=== PATIENT | male | born 1995 | race Caucasian/White ===

== ENCOUNTER 2020-02-10 14:24 | Emergency (ER) | payer OTHER, SELFPAY ==
--- NOTE | 2020-02-10 15:29 | EDPHYS ---
Physician Documentation [facility] Name: Lavon Hilton Jr Age: 24 yrs Sex: Male : 1995 Arrival Date: 02/10/2020 Time: 14:32 Bed 3 Private MD: ED Physician Prabhakar Chan HPI: 02/09 15:25 This 24 yrs old Male presents to ER via Ambulatory with complaints of jr8 Laceration To Arm. 15:25 The patient has a laceration related to: working, occurred outdoors. The laceration(s) jr8 is(are) located on the left arm. Onset: The symptoms/episode began/occurred acutely, today. Associated signs and symptoms: The patient has no apparent associated signs or symptoms. The patient has not experienced similar symptoms in the past. The patient has not recently seen a physician. Stated that he was cutting trees and the blade kicked back causing laceration to dorsal left arm. Historical: - Allergies: 14:35 No Known Allergies; jl7 - Home Meds: 14:35 None [Active]; jl7 - PMHx: 14:35 None; jl7 - PSHx: 14:35 None; jl7 - Immunization history:: Adult Immunizations up to date, Last tetanus immunization: < 5 years ago. - Social history:: Smoking status: Patient reports the use of cigarette tobacco products, smokes one-half pack cigarettes per day. ROS: 15:25 Eyes: Negative for injury, pain, redness, and discharge, ENT: Negative for injury, jr8 pain, and discharge, Neck: Negative for injury, pain, and swelling, Cardiovascular: Negative for chest pain, palpitations, and edema, Respiratory: Negative for shortness of breath, cough, wheezing, and pleuritic chest pain, Abdomen/GI: Negative for abdominal pain, nausea, vomiting, diarrhea, and constipation, Back: Negative for injury and pain, MS/Extremity: Negative for injury and deformity, Neuro: Negative for headache, weakness, numbness, tingling, and seizure. 15:25 Skin: Positive for laceration(s), of the left arm. Exam: 15:25 Constitutional: This is a well developed, well nourished patient who is awake, alert, jr8 and in no acute distress. Cardiovascular: Regular rate and rhythm with a normal S1 and S2. No gallops, murmurs, or rubs. Normal PMI, no JVD. No pulse deficits. Respiratory: Lungs have equal breath sounds bilaterally, clear to auscultation and percussion. No rales, rhonchi or wheezes noted. No increased work of breathing, no retractions or nasal flaring. MS/ Extremity: Pulses equal, no cyanosis. Neurovascular intact. Full, normal range of motion. Neuro: Awake and alert, GCS 15, oriented to person, place, time, and situation. Cranial nerves II-XII grossly intact. Motor strength 5/5 in all extremities. Sensory grossly intact. Cerebellar exam normal. Normal gait. 15:25 Skin: Patient has 6 cm irregular laceration noted to dorsal forearm down to fascia but not piercing through it. Bleeding controlled . Vital Signs: 14:33 BP 113 / 67; Pulse 70; Resp 17; Temp 97.8; Pulse Ox 98% ; Weight 58.51 kg; Height 6 ft. jl7 (182.88 cm); Pain 2/10; 14:33 Body Mass Index 17.50 (58.51 kg, 182.88 cm) jl7 Laceration: 15:25 Wound Repair of 6cm ( 2.4in ) subcutaneous laceration to dorsal aspect of left forearm. jr8 Irregularly shaped.. Distal neuro/vascular/tendon intact. Anesthesia: Local anesthetic administered with 6 mls of 1% lidocaine. Wound prep: Extensive cleansing with betadine, Wound irrigation with saline, Wound margin revised moderately, Wound explored extensively. Skin closed with 7 4-0 Prolene using interrupted sutures and sterile technique. Patient tolerated well. MDM: 14:46 Patient medically screened. [facility] 15:25 Data reviewed: vital signs, nurses notes, and as a result, I will discharge patient. jr8 Data interpreted: Pulse oximetry: on room air is 98 %. Interpretation: normal. Counseling: I had a detailed discussion with the patient and/or guardian regarding: the historical points, exam findings, and any diagnostic results supporting the discharge/admit diagnosis, the need for outpatient follow up, a family practitioner, to return to the emergency department if symptoms worsen or persist or if there are any questions or concerns that arise at home. Administered Medications: No medications were administered Disposition: 02/10 05:35 Co-signature as Attending Physician, Prabhakar Chan MD I agree with the assessment and renny plan of care. Disposition: 02/10/20 15:28 Discharged to Home. Impression: Laceration without foreign body of left forearm. - Condition is Stable. - Discharge Instructions: Laceration Care, Adult. - Medication Reconciliation Form, Thank You Letter, Antibiotic Education, Prescription Opioid Use form. - Follow up: Emergency Department; When: 7 - 10 days; Reason: Wound Recheck, Recheck today's complaints, Continuance of care, Staple/Suture removal, Re-evaluation by your physician. - Problem is new. - Symptoms have improved. Signatures: Prabhakar Chan MD MD cha Roszak, Josh, PA PA jr8 Asuncion Singletary RN RN jl7 Corrections: (The following items were deleted from the chart) 02/09 15:46 15:28 02/10/2020 15:28 Discharged to Home. Impression: Laceration without foreign body jl7 of left forearm. Condition is Stable. Forms are Medication Reconciliation Form, Thank You Letter, Antibiotic Education, Prescription Opioid Use. Follow up: Emergency Department; When: 7 - 10 days; Reason: Wound Recheck, Recheck today's complaints, Continuance of care, Staple/Suture removal, Re-evaluation by your physician. Problem is new. Symptoms have improved. jr8
--- NOTE | 2020-02-10 15:29 | ER ---
Nurse's Notes [facility] Name: Lavon Hilton Jr Age: 24 yrs Sex: Male : 1995 Arrival Date: 02/10/2020 Time: 14:32 Bed 3 Private MD: Diagnosis: Laceration without foreign body of left forearm Presentation: 02/09 14:33 Chief complaint: Patient states: Cutting tree limbs and the saw slipped cutting left jl7 forearm 30 min [employer]. Coronavirus screen: Proceed with normal triage. Patient denies a cough. Patient denies shortness of breath or difficulty breathing. Patient denies measured and/or subjective temperature greater than 100.4F prior to today's visit. Patient denies travel on a cruise ship or to a country the [facility] currently lists as an affected area. Patient denies contact with known and/or suspected case of COVID-19. Ebola Screen: No symptoms or risks identified at this time. Complicating Factors: There are no complicating factors for this patient. Initial Sepsis Screen: Does the patient meet any 2 criteria? No. Patient's initial sepsis screen is negative. Does the patient have a suspected source of infection? No. Patient's initial sepsis screen is negative. Risk Assessment: Do you want to hurt yourself or someone else? Patient reports no desire to harm self or others. Onset of symptoms was February 10, 2020. Care prior to arrival: None. 14:33 Method Of Arrival: Ambulatory 7 14:33 Acuity: YOHANA 4 jl7 Triage Assessment: 14:35 General: Appears in no apparent distress. uncomfortable, Behavior is calm, cooperative, jl7 appropriate for age, anxious. Pain: Complains of pain in dorsal aspect of left forearm Pain does not radiate. Pain currently is 2 out of 10 on a pain scale. Pain began 30 min ago. Neuro: Level of Consciousness is awake, alert, obeys commands, Oriented to person, place, time, situation. Cardiovascular: Patient's skin is warm and dry. Respiratory: Airway is patent Respiratory effort is even, unlabored, Respiratory pattern is regular, symmetrical. Derm: Skin is pink, warm \T\ dry. Injury Description: Laceration sustained to dorsal aspect of left forearm is contaminated, 2.6 to 7.5 cm long, was sustained 30-60 minutes ago. is bleeding a small amount. Historical: - Allergies: 14:35 No Known Allergies; jl7 - Home Meds: 14:35 None [Active]; jl7 - PMHx: 14:35 None; jl7 - PSHx: 14:35 None; jl7 - Immunization history:: Adult Immunizations up to date, Last tetanus immunization: < 5 years ago. - Social history:: Smoking status: Patient reports the use of cigarette tobacco products, smokes one-half pack cigarettes per day. Screenin:36 Abuse screen: Denies threats or abuse. Denies injuries from another. Nutritional jl7 screening: No deficits noted. Tuberculosis screening: No symptoms or risk factors identified. Fall Risk None identified. Assessment: 14:36 General: See triage assessment. jl7 Vital Signs: 14:33 BP 113 / 67; Pulse 70; Resp 17; Temp 97.8; Pulse Ox 98% ; Weight 58.51 kg; Height 6 ft. jl7 (182.88 cm); Pain 2/10; 14:33 Body Mass Index 17.50 (58.51 kg, 182.88 cm) jl7 ED Course: 14:32 Patient arrived in ED. jl7 14:34 Triage completed. jl7 14:35 Arm band placed on right wrist. jl7 14:36 Patient has correct armband on for positive identification. Bed in low position. Call jl7 light in reach. Side rails up X 1. Pulse ox on. NIBP on. 14:41 Asuncion Singletary, SEAN is Primary Nurse. jl7 14:41 Sim Ryan PA is PHCP. jr8 14:41 Prabhakar Chan MD is Attending Physician. jr8 15:45 Assist provider with laceration repair on dorsal aspect of left forearm that was jl7 between 2.6 to 7.5 cm using sutures. Set up tray. Performed by Sim FINNEGAN Dressed with 4X4s, Neosporin, Patient tolerated well. Patient did not have IV access during this emergency room visit. Administered Medications: No medications were administered Outcome: 15:28 Discharge ordered by . jr8 15:45 Discharged to home ambulatory. jl7 15:45 Condition: stable 15:45 Discharge instructions given to patient, Instructed on discharge instructions, follow up and referral plans. Demonstrated understanding of instructions, follow-up care. 15:46 Patient left the ED. jl7 Signatures: Sim Ryan PA PA jr8 Asuncion Singletary, RN RN jl7
[2020-02-10 15:51] VITALS: BP 113/67; TEMP 97.8; O2SAT 98
[2020-02-10] MEDS ORDERED: LIDOCAINE 1% MPF 5 ML VIAL ONE (18:53)
== END 2020-02-10 15:46 | disposition home or self-care (01) ==
LOC: ER 14:24
PROC: 0JQH0ZZ Repair Left Lower Arm Subcutaneous Tissue and Fascia, Open Approach (ICD-10-PCS; principal; 2020-02-10)
DX: S51.812A Laceration without foreign body of left forearm, initial encounter (principal); W27.8XXA Contact with other nonpowered hand tool, initial encounter; Y93.H2 Activity, gardening and landscaping; Y92.9 Unspecified place or not applicable; F17.210 Nicotine dependence, cigarettes, uncomplicated
CPT/HCPCS: 99283

== ENCOUNTER 2022-11-30 18:10 | Emergency (ER) | payer SELFPAY ==
[2022-11-30 19:56] LABS: Urine Blood Negative (Negative); Urine Glucose Negative (Negative); Urine Protein Negative (Negative)
[2022-11-30] MEDS ORDERED: NA CHLORIDE 0.9% 1,000 ML ONE (20:04)
[2022-11-30] MEDS ORDERED: KETOROLAC 30 MG/ML INJ ONE (20:04)
[2022-11-30 20:08] LABS: Absolute Lymphocytes (CBC) 2.5 K/uL (0.7-4.9); Hematocrit 42.3 % (39.6-49.0); MCV 85.2 fL (80-100); RBC Red Blood Cell Count 4.96 M/uL (4.33-5.43)
[2022-11-30 20:09] LABS: Urine Bacteria None Seen /HPF (<20); Urine Mucus Slight /HPF (None Seen); Urine RBC <5 /HPF (None Seen)
[2022-11-30 20:13] LABS: Albumin 4.2 g/dL (3.4-5.0); Bilirubin Total 0.4 mg/dL (0.2-1.0); Potassium 4.3 mmol/L (3.5-5.1); Protein, Total 7.6 g/dL (6.4-8.2)
--- NOTE | 2022-11-30 20:51 | RAD REPORT ---
EXAM DESCRIPTION: US - Scrotum Testicles - 11/30/2022 8:37 pm CLINICAL HISTORY: Swelling COMPARISON: None available TECHNIQUE: Sonographic grayscale and color flow images of the scrotum were obtained. FINDINGS: The right testicle measures 4.6 x 2.7 x 3.0 centimeter. Asymmetric hyperemia throughout mo st of the right testicular parenchyma, with mild heterogeneity. No intratesticular masses or evidence of testicular torsion. The left testicle measures 4.0 x 2.3 x 2.8 centimeter. No intratesticular masses or evidence of testi cular torsion. Asymmetric enlargement of the right epididymal head, with hyperemia. Bilateral mild hydroceles. Septa tion within the left hydrocele, with possible focal calcification. No pathologic fluid collections. IMPRESSION: Asymmetric hyperemia of the right testicle, with asymmetric enlargement and hyperemia of the right epididymal head, findings which raise concern for acute epididymal orchitis. Bilateral small Hydroceles.
--- NOTE | 2022-11-30 21:04 | RAD REPORT ---
EXAM DESCRIPTION: CT - Abdomen Pelvis W Contrast - 11/30/2022 8:44 pm CLINICAL HISTORY: RLQ abdomen pain COMPARISON: Scrotum Testicles dated 11/30/2022 TECHNIQUE: Thin cut axial CT imaging of the abdomen and pelvis was performed following intravenous a dministration of Isovue 300. Multiplanar reformats were generated and reviewed. All CT scans are performed using dose optimization technique as appropriate and may include automated exposure control or mA/KV adjustment according to patient size. FINDINGS: No suspicious findings in the lung bases. Small left basal nodules, up to 5 millimeter in size. The liver, spleen, and pancreas show no suspicious findings. Gallbladder and biliary tree are also wi thout suspicious finding. Symmetric renal function is seen with no hydronephrosis or suspicious renal mass. No dilated bowel loops or bowel wall thickening. No free air, free fluid or inflammatory stranding. N o hernia, mass or bulky lymphadenopathy. The urinary bladder is without significant finding. No suspicious bony findings. IMPRESSION: No acute intra-abdominal process. Nonspecific small left basal pulmonary nodules.
--- NOTE | 2022-11-30 22:34 | EDPHYS ---
Physician Documentation [facility] Name: Lavon Hilton Jr Age: 27 yrs Sex: Male : 1995 Arrival Date: 11/30/2022 Time: 18:11 Bed 14 Private MD: ED Physician Andrew Clayton HPI: 11/30 19:33 This 27 yrs old Male presents to ER via Ambulatory with complaints of Testicular cp Swelling. 19:33 The patient presents with swelling, of the right testicle, tenderness, of the right cp testicle. 19:33 Onset: The symptoms/episode began/occurred 2 day(s) ago. cp 19:33 Associated signs and symptoms: Pertinent positives: abdominal pain, dysuria. Severity cp of symptoms: in the emergency department the symptoms are unchanged, despite home interventions. 19:33 Patient reports recent sexual encounter with new partner. cp Historical: - Allergies: 18:26 No Known Allergies; jl7 - Home Meds: 18:26 None [Active]; jl7 - PMHx: 18:26 None; jl7 - PSHx: 18:26 None; jl7 - Immunization history:: Client reports having NOT received the Covid vaccine. - Social history:: Smoking status: Patient reports the use of cigarette tobacco products, smokes one-half pack cigarettes per day. ROS: 19:40 Constitutional: Negative for body aches, chills, fever, poor PO intake. cp 19:40 Eyes: Negative for injury, pain, redness, and discharge. cp 19:40 ENT: Negative for drainage from ear(s), ear pain, sore throat, difficulty swallowing, difficulty handling secretions. 19:40 Cardiovascular: Negative for chest pain, edema, palpitations. 19:40 Respiratory: Negative for cough, shortness of breath, wheezing. 19:40 Abdomen/GI: Positive for abdominal pain, of the right lower quadrant, Negative for vomiting, diarrhea, constipation. 19:40 Back: Negative for pain at rest, pain with movement. 19:40 : Positive for burning with urination, testicular pain 19:40 All other systems are negative. Exam: 19:45 Constitutional: The patient appears in no acute distress, alert, awake, non-toxic, well cp developed, well nourished, uncomfortable. 19:45 Head/Face: Normocephalic, atraumatic. cp 19:45 Eyes: Periorbital structures: appear normal, Conjunctiva: normal, no exudate, no injection, Sclera: no appreciated abnormality, Lids and lashes: appear normal, bilaterally. 19:45 ENT: External ear(s): are unremarkable, Nose: is normal, Mouth: Lips: moist, Oral mucosa: moist, Posterior pharynx: Airway: no evidence of obstruction, patent. 19:45 Chest/axilla: Inspection: normal. 19:45 Cardiovascular: Rate: normal. 19:45 Respiratory: the patient does not display signs of respiratory distress, Respirations: normal, no use of accessory muscles, no retractions, labored breathing, is not present. 19:45 Abdomen/GI: Inspection: abdomen appears normal, Bowel sounds: active, all quadrants, Palpation: soft, in all quadrants, mild abdominal tenderness, in the right lower quadrant, rebound tenderness, is not appreciated. 19:45 Back: CVA tenderness, is absent. 19:45 : Male external genitalia: swelling: of the right testicle is noted, tenderness, of the right testicle is noted, that is moderate, Sexual behavior: the patient is sexually active. 19:45 Skin: cellulitis, is not appreciated, no rash present. Vital Signs: 18:24 BP 144 / 94; Pulse 62; Resp 17; Temp 98.5; Pulse Ox 98% ; Weight 58.97 kg; Height 5 ft. jl7 11 in. (180.34 cm); Pain 9/10; 20:18 Pulse 55; Resp 16; Pulse Ox 100% on R/A; jb4 21:45 BP 110 / 63; Pulse 49; Resp 16; Pulse Ox 99% on R/A; jb4 18:24 Body Mass Index 18.13 (58.97 kg, 180.34 cm) jl7 MDM: 18:27 Patient medically screened. 20:00 Differential diagnosis: appendicitis, UTI, prostatitis, urethritis. 22:33 Data reviewed: vital signs, nurses notes, lab test result(s), radiologic studies, CT cp scan, ultrasound. 22:33 I considered the following discharge prescriptions or medication management in the emergency department Medications were administered in the Emergency Department. See MAR. Counseling: I had a detailed discussion with the patient and/or guardian regarding: the historical points, exam findings, and any diagnostic results supporting the discharge/admit diagnosis, lab results, radiology results, the need for outpatient follow up, a urologist, to return to the emergency department if symptoms worsen or persist or if there are any questions or concerns that arise at home. Response to treatment: the patient's symptoms have markedly improved after treatment, and as a result, I will discharge patient. 11/30 19:28 Order name: US Scrotum Testicles cp 11/30 19:28 Order name: Urine Microscopic Only cp 11/30 19:28 Order name: Urine Dipstick-Ancillary (obtain specimen); Complete Time: 20:13 cp 11/30 19:28 Order name: CBC with Diff cp 11/30 19:28 Order name: CMP cp 11/30 19:28 Order name: Lipase cp 11/30 19:28 Order name: IV Saline Lock; Complete Time: 20:13 cp 11/30 19:28 Order name: Labs collected and sent; Complete Time: 20:13 cp 11/30 19:28 Order name: CT Abd/Pelvis - IV Contrast Only cp 11/30 19:56 Order name: Urine Dipstick-Ancillary; Complete Time: 22:05 EDMS 11/30 20:09 Order name: Urine Microscopic Only; Complete Time: 22:05 EDMS 11/30 20:10 Order name: CBC with Automated Diff; Complete Time: 22:05 EDMS 11/30 22:05 Interpretation: Normal except: WBC 11.40; MN% 14.2; MNA 1.6. cp 11/30 20:13 Order name: Comprehensive Metabolic Panel; Complete Time: 22:05 EDMS 11/30 20:13 Order name: Lipase; Complete Time: 22:05 EDMS 11/30 20:52 Order name: US; Complete Time: 22:05 EDMS 11/30 21:04 Order name: CT; Complete Time: 22:05 EDMS Administered Medications: 20:13 Drug: NS 0.9% 1000 ml Route: IV; Rate: 1 bolus; Site: right forearm; jb4 20:13 Drug: TORadol - (ketorolac) 15 mg Route: IVP; Site: right forearm; jb4 22:38 Drug: Rocephin (cefTRIAXone) 1 grams Route: IV; Rate: calculated rate; Site: right jb4 forearm; 22:51 Follow up: Response: No adverse reaction jb4 22:38 Drug: Zithromax (azithromycin) 1 grams Route: PO; jb4 22:51 Follow up: Response: No adverse reaction jb4 Disposition Summary: 11/30/22 22:33 Discharge Ordered Location: Home cp Problem: new cp Symptoms: have improved cp Condition: Stable cp Diagnosis - Epididymo-orchitis - Right cp Followup: cp - With: Girma Monge MD - When: 1 week - Reason: Recheck today's complaints Discharge Instructions: - Discharge Summary Sheet cp - Epididymitis cp - Orchitis cp - Testicular Self-Exam cp Forms: - Medication Reconciliation Form cp - Thank You Letter cp - Antibiotic Education cp - Prescription Opioid Use cp - Work release form jb4 Prescriptions: - Diclofenac Sodium 75 mg Oral Tablet Sustained Release - take 1 tablet by ORAL route 2 times per day; 30 tablet; Refills: 0, Product cp Selection Permitted - Tramadol 50 mg Oral Tablet - take 1 tablet by ORAL route every 8 hours as needed; 12 tablet; Refills: 0, cp Product Selection Permitted - Doxycycline Monohydrate 100 mg Oral Tablet - take 1 tablet by ORAL route every 12 hours for 14 days; 28 tablet; Refills: 0, cp Product Selection Permitted Signatures: Dispatcher [employer] EDPrabhakar Nathan PA PA cp Bryson, James, RN RN jb4 Asuncion Singletary RN RN jl7
--- NOTE | 2022-11-30 22:34 | ER ---
Nurse's Notes [facility] Name: Lavon Hilton Jr Age: 27 yrs Sex: Male : 1995 Arrival Date: 11/30/2022 Time: 18:11 Bed 14 Private MD: Diagnosis: [id number] Presentation: 11/30 18:24 Chief complaint: Patient states: Right testicular swelling x 2 days with pain and jl7 burning with urination. Coronavirus screen: At this time, the client does not indicate any symptoms associated with coronavirus-19. Ebola Screen: No symptoms or risks identified at this time. Initial Sepsis Screen: Does the patient meet any 2 criteria? No. Patient's initial sepsis screen is negative. Does the patient have a suspected source of infection? No. Patient's initial sepsis screen is negative. Risk Assessment: Do you want to hurt yourself or someone else? Patient reports no desire to harm self or others. Onset of symptoms was November 28, 2022. 18:24 Method Of Arrival: Ambulatory jl7 18:24 Acuity: YOHANA 3 jl7 Triage Assessment: 18:26 General: Appears in no apparent distress. uncomfortable, Behavior is calm, cooperative, jl7 appropriate for age. Pain: Complains of pain in pelvis Pain currently is 9 out of 10 on a pain scale. Historical: - Allergies: 18:26 No Known Allergies; jl7 - Home Meds: 18:26 None [Active]; jl7 - PMHx: 18:26 None; jl7 - PSHx: 18:26 None; jl7 - Immunization history:: Client reports having NOT received the Covid vaccine. - Social history:: Smoking status: Patient reports the use of cigarette tobacco products, smokes one-half pack cigarettes per day. Screenin:[address] [facility] ED Fall Risk Assessment (Adult) History of falling in the last 3 months, jb4 including since admission No falls in past 3 months (0 pts) Confusion or Disorientation No (0 pts) Score/Fall Risk Level 0 - 2 = Low Risk Oriented to surroundings, Maintained a safe environment. Abuse screen: Denies threats or abuse. Nutritional screening: No deficits noted. Tuberculosis screening: No symptoms or risk factors identified. Assessment: 19:00 General: Appears in no apparent distress. uncomfortable, Behavior is calm, cooperative, jb4 appropriate for age. Pain: Complains of pain in groin Pain does not radiate. Pain currently is 9 out of 10 on a pain scale. Neuro: Level of Consciousness is awake, alert, obeys commands, Oriented to person, place, time, situation. Cardiovascular: Patient's skin is warm and dry. Respiratory: Airway is patent Respiratory effort is even, unlabored, Respiratory pattern is regular, symmetrical. GI: No signs and/or symptoms were reported involving the gastrointestinal system. : No signs and/or symptoms were reported regarding the genitourinary system. EENT: No signs and/or symptoms were reported regarding the EENT system. Derm: Skin is intact, Skin is pink, warm \T\ dry. Musculoskeletal: Circulation, motion, and sensation intact. Range of motion:. 20:18 Reassessment: Patient appears in no apparent distress at this time. Patient and/or jb4 family updated on plan of care and expected duration. Pain level reassessed. Patient is alert, oriented x 3, equal unlabored respirations, skin warm/dry/pink. 21:15 Reassessment: Patient appears in no apparent distress at this time. Patient and/or jb4 family updated on plan of care and expected duration. Pain level reassessed. Patient is alert, oriented x 3, equal unlabored respirations, skin warm/dry/pink. 22:49 Reassessment: Patient appears in no apparent distress at this time. Patient and/or jb4 family updated on plan of care and expected duration. Pain level reassessed. Patient is alert, oriented x 3, equal unlabored respirations, skin warm/dry/pink. Vital Signs: 18:24 BP 144 / 94; Pulse 62; Resp 17; Temp 98.5; Pulse Ox 98% ; Weight 58.97 kg; Height 5 ft. jl7 11 in. (180.34 cm); Pain 9/10; 20:18 Pulse 55; Resp 16; Pulse Ox 100% on R/A; jb4 21:45 BP 110 / 63; Pulse 49; Resp 16; Pulse Ox 99% on R/A; jb4 18:24 Body Mass Index 18.13 (58.97 kg, 180.34 cm) jl7 ED Course: 18:11 Patient arrived in ED. am2 18:22 Annemarie Klein, SEAN is Primary Nurse. db 18:23 Prabhakar Moreira PA is PHCP. cp 18:23 Andrew Clayton MD is Attending Physician. cp 18:26 Triage completed. jl7 18:26 Arm band placed on right wrist. jl7 19:00 Patient has correct armband on for positive identification. Bed in low position. Call jb4 light in reach. Side rails up X 1. 19:34 Primary Nurse role handed off by Anneamrie Klein, SEAN 20:00 Radiology exam delayed due to IV insertion attempt and/or patient not having mw3 appropriate IV at this time. 20:13 Urine Microscopic Only Sent. jb4 20:13 Lipase Sent. jb4 20:14 CMP Sent. jb4 20:14 CBC with Diff Sent. jb4 20:16 Rancho Alonzo, RN is Primary Nurse. jb4 22:32 Girma Monge MD is Referral Physician. cp 22:50 No provider procedures requiring assistance completed. IV discontinued, intact, jb4 bleeding controlled, No redness/swelling at site. Pressure dressing applied. Administered Medications: 20:13 Drug: NS 0.9% 1000 ml Route: IV; Rate: 1 bolus; Site: right forearm; jb4 20:13 Drug: TORadol - (ketorolac) 15 mg Route: IVP; Site: right forearm; jb4 22:38 Drug: Rocephin (cefTRIAXone) 1 grams Route: IV; Rate: calculated rate; Site: right jb4 forearm; 22:51 Follow up: Response: No adverse reaction jb4 22:38 Drug: Zithromax (azithromycin) 1 grams Route: PO; jb4 22:51 Follow up: Response: No adverse reaction jb4 Outcome: 22:33 Discharge ordered by MD. cp 22:50 Discharged to home ambulatory. jb4 22:50 Condition: stable 22:50 Discharge instructions given to patient, Instructed on discharge instructions, follow up and referral plans. no drinking with medication, no driving heavy equipment, medication usage, Demonstrated understanding of instructions, follow-up care, medications, Prescriptions given X 3. 22:55 Patient left the ED. jb4 Signatures: Prabhakar Moreira PA PA cp Rancho Alonzo RN RN jb4 Asuncion Singletary RN RN jl7 Fiorella Flowers am2 Love Venegas mw3 Danitza Brewer Annemarie Klein RN RN db
[2022-11-30] MEDS ORDERED: AZITHROMYCIN 250 MG TAB ONE (22:40)
[2022-11-30] MEDS ORDERED: CEFTRIAXONE 1000 MG/VIAL ONE (22:40)
[2022-11-30 23:03] VITALS: TEMP 98.5
[2022-11-30 23:05] VITALS: BP 110/63; O2SAT 99
== END 2022-11-30 22:55 | disposition home or self-care (01) ==
LOC: ER 18:10
DX: N45.3 Epididymo-orchitis (principal)
CPT/HCPCS: 36415; 74177; 76870; 80053; 81003; 81015; 83690; 85025; 96374; 96375; 99283; J7030; Q9967

== ENCOUNTER 2025-02-15 17:29 | Emergency (ER) | payer SELFPAY ==
--- NOTE | 2025-02-15 19:01 | ER ---
Nurse's Notes [facility] Name: Lavon Hilton Jr Age: 29 yrs Sex: Male : 1995 Arrival Date: 02/15/2025 Time: 17:29 Bed IW2 Private MD: Diagnosis: Presentation: 02/15 18:14 Note PT SEEN BY STAFF WALKING OFF OF HOSPITAL GROUNDS. db ED Course: 17:31 Patient arrived in ED. al6 17:44 Roshan Warner DO is Attending Physician. ms3 17:50 Patient's name was called from ER lobby. No response. db 18:00 Patient's name was called from ER lobby. No response. Unable to locate patient. Will db disposition as left without being seen by a provider. 18:14 Patient's name was called from ER lobby. No response. Unable to locate patient. Will db disposition as left without being seen by a provider. 18:37 Patient's name was called from ER lobby. No response. Unable to locate patient. Will db disposition as left without being seen by a provider. Administered Medications: No medications were administered Outcome: 19:00 Eloped from waiting room, kb3 19:00 Condition: stable 19:00 Patient left the ED. kb3 Signatures: Roshan Warner DO DO ms3 Ashley Moran, RN RN kb3 Annemarie Klein, RN RN db Sherrell Bundy al6
== END 2025-02-15 19:00 | disposition left against medical advice (07) ==
LOC: ER 17:29
DX: Z02.9 Encounter for administrative examinations, unspecified (principal)